=== PATIENT | female | born 1980 | race Caucasian/White ===

== ENCOUNTER 2023-03-01 09:02 | Outpatient (CLI) | payer OTHER, SELFPAY ==
--- NOTE | 2023-03-01 09:15 | CRLHL7_ITS ---
For Patients: As a result of the Century Cures Act, medical imaging exams and procedure reports are released immediately into your electronic medical record. You may view this report before your referring provider. If you have questions, please contact your health care provider. BILATERAL SCREENING MAMMOGRAM WITH COMPUTER-AIDED DETECTION TECHNIQUE: CC and MLO views were obtained. These mammographic images have been obtained using full-field digital technique. These mammographic images were interpreted with the benefit of computer-aided detection. COMPARISON FILM: 02/23/22, 11/18/20. FINDINGS: The breasts are heterogeneously dense, which may obscure small masses. IMPRESSION: There is no radiographic evidence for malignancy. ASSESSMENT: BI-RADS Category 1: Negative RECOMMENDATION: Routine screening mammogram in 1 year. A lay language report of this examination will be provided to the patient. SCOTT ARMENTA M.D. Diagnostic Radiologist [email or web address] Transcribed: 03/01/2023, 5:[address]/Dictated by: Scott Armenta MD @ 03/01/2023 11:03:00 AM (Electronically Signed)
== END 2023-03-01 09:03 | disposition home or self-care (01) ==
PROVIDERS: Visit Provider Obstetrics & Gynecology
DX: Z12.31 Encounter for screening mammogram for malignant neoplasm of breast (principal); R92.2 Inconclusive mammogram
CPT/HCPCS: 77067

== ENCOUNTER 2023-07-18 08:15 | Outpatient (CLI) | payer OTHER, SELFPAY | END 2023-07-18 08:16 | disposition home or self-care (01) | LOC: NFLDREF 07-20 11:42 | PROVIDERS: PCP Family Medicine; Referring Provider Family Medicine; Visit Provider Family Medicine | DX: Z00.00 Encounter for general adult medical examination without abnormal findings (principal); G43.909 Migraine, unspecified, not intractable, without status migrainosus; K59.00 Constipation, unspecified; N39.3 Stress incontinence (female) (male); R53.83 Other fatigue; Z13.6 Encounter for screening for cardiovascular disorders | CPT/HCPCS: 80053; 80061; 82306; 82784; 84443; 86364 ==

== ENCOUNTER 2023-07-26 08:49 | Outpatient (CLI) | payer OTHER, SELFPAY ==
--- NOTE | 2023-07-26 09:57 | W.ANESCHARGE ---
Anesthesia Charges Start Date/Time Anesthesia Start Date: 07/26/23 Anesthesia Start Time: 09:30 Stop Date/Time Anesthesia Stop Date: 07/26/23 Anesthesia Stop Time: 09:53
== END 2023-07-26 08:50 | disposition home or self-care (01) ==
LOC: OP CLINIC 08:50
PROVIDERS: PCP Family Medicine; Visit Provider Internal Medicine
DX: K62.5 Hemorrhage of anus and rectum (principal)
CPT/HCPCS: 00811; 45380; 88305; J2704

== ENCOUNTER 2023-09-06 08:54 | Outpatient (CLI) | payer OTHER, SELFPAY | END 2023-09-06 08:55 | disposition home or self-care (01) | LOC: NFLDREF 09-07 15:20 | PROVIDERS: PCP Family Medicine; Visit Provider Family Medicine | DX: Z00.00 Encounter for general adult medical examination without abnormal findings (principal); R00.2 Palpitations; N39.3 Stress incontinence (female) (male); E55.9 Vitamin D deficiency, unspecified; Z13.6 Encounter for screening for cardiovascular disorders | CPT/HCPCS: 80053; 80061; 82306; 83880; 84443; 87086 ==

== ENCOUNTER 2023-10-06 09:08 | Outpatient (CLI) | payer OTHER, SELFPAY | END 2023-10-06 09:09 | disposition home or self-care (01) | LOC: FRMREF 09:14 | PROVIDERS: PCP Family Medicine; Visit Provider Family Medicine | DX: Z00.00 Encounter for general adult medical examination without abnormal findings (principal); J45.909 Unspecified asthma, uncomplicated | CPT/HCPCS: 86769 ==

== ENCOUNTER 2024-04-25 14:20 | Outpatient (CLI) | payer OTHER, SELFPAY ==
--- OUTSIDE RECORDS SUMMARY | 2024-04-25 14:33 | XMS_ITS | Clinical Summary ---
Author Organization [facility] Address [place], [place] [address] Care Team Providers Care Hog Sticker Name Role Phone Indu Cárdenas MD Primary Care Prov ider Allergies No known active allergies Medications Medication Sig Dispensed Refills Start Date End Date Status cetirizine (ZYRTEC) 10 mg tablet Take 1 tablet by mouth once daily. 0 07/12/2018 Active metoprolol tartrate (LOPRESSOR) 25 mg tabletIndications:Pal pitation Take 1 tablet by mouth 2 times daily if needed (heart palpitations). 60 tablet 11 10/20/2018 Active Active Problems Problem Noted Date Diagnosed Date Urinary urgency 06/27/2017 Social History Tobacco Use Types Packs/Day Years Used Date Smoking Tobacco: Never Smokeless Tobacco: Never Tobacco Cessation:Counseling Given: Yes Alcohol Use Standard Drinks/Week Comments Yes 0 (1 standard drink = 0.6 oz pur e alcohol) 1-2 per week Sex and Gender Information Value Date Recorded Sex Assigned at Not on file Gender Identity Not on file Sexual Orientation Not on file Obstetrics History Last Filed Vital Signs Vital Sign Reading Time Taken Comments Blood Pressure 122/88 11/17/2018 11:02 AM EARLY CHILDHOOD EDUCATION SPECIALIST Pulse 67 11/17/2018 11:02 AM EARLY CHILDHOOD EDUCATION SPECIALIST Temperature - - Respiratory Rate 16 11/17/2018 11:02 AM EARLY CHILDHOOD EDUCATION SPECIALIST Oxygen Saturation 98% 07/12/2018 4:07 PM CDT Inhaled Oxygen Concentration - - Weight 62.1 kg (137 lb) 11/17/2018 11:02 AM EARLY CHILDHOOD EDUCATION SPECIALIST Height 167.7 cm (5' 6.02) 07/12/2018 4:07 PM CD T Body Mass Index 22.1 07/12/2018 4:07 PM CDT Plan of Treatment Health Maintenance Due Date Last Done Comments Tdap 1991 Depression screening for age 12+ 1992 HIV for age 15-65 1995 Hepatitis C screening for age 18-79 1998 Tetanus booster 2000 BMI (ht and wt on same day) for age 18+ 07/12/2019 07/12/2018 COVID-19 vaccine series (2022-24 season) 2023 Pap test for age 21-65 09/15/2023 0, 09/15/2020, 06/13/2019, Additional history exists Influenza for age 9-49 07/29/2024 Pneumococcal series for age 6-64 Aged Out No longer eligible based on patient's age to complete this topic Procedures Procedure Name Priority Date/Time Associated Diagnosis Comments MOTORBOAT MECHANIC INBOARD THIN PREP PAP SCREEN IMAGED Routine 09/15/2020 10:00 AM CDT from Last 3 Months or Most Recently Relevant to Health Maintenance Results * MOTORBOAT MECHANIC INBOARD THIN PREP PAP SCREEN IMAGED (09/15/2020 10:00 AM CDT) Case Report Gynecologic Cytology Report ? Case: [id number] ? Authorizing Provider: ??Indu Cárdenas ?Collected: ? 09/15/2020 1000 ? MD Keri ? Ordering Location: ? [facility] ?Received: ?09/17/2020 0939 ? First Screen: ?Ivan Harris ? Specimen: ?MOTORBOAT MECHANIC INBOARD ThinPrep Vial Screening, Cervical/Vaginal ? 09/22/2020 9:54 AM [facility] INTERPRETATION/ RESULT NEGATIVE FOR INTRAEPITHELIAL LESION OR MALIGNANCY (NIL) (none) 09/22/2020 9:54 AM [facility] IMEN ADEQUACY Satisfactory for evaluation Endocervical component present 09/22/2020 9:54 AM [facility] HPV REQUEST HPV and PAP 09/22/2020 9:54 AM [facility] Last Pap Date 06/13/2019 09/22/2020 9:54 AM [facility] Last Pap Result NIL 0 9:54 AM [facility] Comment:-HPV Menstrual Status 09/22/2020 9:54 AM [facility] Comment:IUD Additional Information 09/22/2020 9:54 AM [facility] Comment: Interpreted at [facility], Central Laboratory - [address], [place] [address] Automated Review Successful 09/22/2020 9:54 AM [facility] Comment:Specimen processed s uccessfully by automated velvet steamer device, ThinPrep Imaging System, [employer] ANCILLARY TESTING MOTORBOAT MECHANIC INBOARD HPV Ordered, Please see separate report 09/22/2020 9:54 AM [facility] Note The pap test is a screening technique, not a diagnostic procedure. It is used primarily to screen for squamous cancers and precursor lesions. Published studies have shown that it is subject to both false negative and false positive results. The pap test should not be used as the sole means to diagnose or exclude pre-malignant and malignant lesions. 09/22/2020 9:54 AM CDT [facility] Other (Cervical/Vagina l) 09/15/2020 10:00 AM CDT 09/17/2020 9:39 AM CDT Indu Cárdenas MD PATHOLOGY/ [facility]TOLOGY [facility] [address] [place] [address], [place] from Last 3 Months or Most Recently Relevant to Health Maintenance Care Teams Hog Sticker Relationship Specialty Start Date End Date Indu Cárdenas MD [address] [place] [address] PCP - General Obstetrics and Gynecology 07/12/18
== END 2024-04-25 14:21 | disposition home or self-care (01) ==
LOC: NFLDREF 14:31
PROVIDERS: PCP Family Medicine; Visit Provider Registered Nurse
DX: Z79.899 Other long term (current) drug therapy (principal)
CPT/HCPCS: 80076

== ENCOUNTER 2024-05-10 07:17 | Outpatient (CLI) | payer OTHER, SELFPAY ==
--- OUTSIDE RECORDS SUMMARY | 2024-05-10 07:21 | XMS_ITS | Clinical Summary ---
Author Organization [facility] Address [place], [place] [address] Care Team Providers Care Skeins Yarn Examiner Name Role Phone Indu Cárdenas MD Primary [...] Comments Blood Pressure 122/88 11/17/2018 11:02 AM BANKRUPTCY PROCESSOR Pulse 67 11/17/2018 11:02 AM BANKRUPTCY PROCESSOR Temperature - - Respiratory Rate 16 11/17/2018 11:02 AM BANKRUPTCY PROCESSOR Oxygen Saturation 98% 07/12/2018 4:07 PM CDT Inhaled Oxygen Concentration - - Weight 62.1 kg (137 lb) 11/17/2018 11:02 AM BANKRUPTCY PROCESSOR Height 167.7 cm (5' 6.02) 07/12/2018 4:07 [...] Procedure Name Priority Date/Time Associated Diagnosis Comments TOOTH CUTTER CLUTCH THIN PREP PAP SCREEN IMAGED Routine 09/15/2020 10:00 AM CDT from Last 3 Months or Most Recently Relevant to Health Maintenance Results * TOOTH CUTTER CLUTCH THIN PREP PAP SCREEN IMAGED (09/15/2020 10:00 AM CDT) Case Report Gynecologic Cytology Report ? Case: [id number] ? Authorizing Provider: ??Indu Cárdenas ?Collected: ? 09/15/2020 1000 ? MD Keri ? Ordering Location: ? [facility] ?Received: ?09/17/2020 0939 ? First Screen: ?Ivan Harris ? Specimen: ?TOOTH CUTTER CLUTCH ThinPrep Vial Screening, Cervical/Vaginal ? 09/22/2020 9:[address] [facility] INTERPRETATION/ RESULT NEGATIVE FOR INTRAEPITHELIAL LESION OR MALIGNANCY (NIL) (none) 09/22/2020 9:54 AM [facility] IMEN ADEQUACY Satisfactory for evaluation Endocervical component present 09/22/2020 9:[address] [facility] HPV REQUEST HPV and PAP 09/22/2020 9:54 AM [facility] Last Pap Date 06/13/2019 09/22/2020 9:54 AM [facility] Last Pap Result NIL 0 9:54 AM [facility] Comment:-HPV Menstrual Status 09/22/2020 9:54 AM [facility] Comment:IUD Additional Information 09/22/2020 9:54 AM [facility] Comment: Interpreted at [facility], Central Laboratory - [address], [place] [address] Automated Review Successful 09/22/2020 9:54 AM [facility] Comment:Specimen processed s uccessfully by automated relationship consultant device, ThinPrep Imaging System, [employer] ANCILLARY TESTING TOOTH CUTTER CLUTCH HPV Ordered, Please see separate report 09/22/2020 9:54 AM [facility] Note The pap test is [...] and malignant lesions. 09/22/2020 9:54 AM CDT [facility] Other (Cervical/Vagina l) 09/15/2020 10:00 AM CDT 09/17/2020 9:39 AM CDT Indu Cárdenas MD PATHOLOGY/ CYTOLOGY [facility] [address] [place] [address], [place] from Last 3 Months or Most Recently Relevant to Health Maintenance Care Teams Skeins Yarn Examiner Relationship Specialty Start Date End Date Indu Cárdenas MD [address] [place] [address] PCP - General Obstetrics and Gynecology 07/12/18
--- NOTE | 2024-05-10 08:21 | W.ANESCHARGE ---
Anesthesia Charges Start Date/Time Anesthesia Start Date: 05/10/24 Anesthesia Start Time: 08:00 Stop Date/Time Anesthesia Stop Date: 05/10/24 Anesthesia Stop Time: 08:18
--- NOTE | 2024-05-10 09:49 | W.ANESCHARGE ---
Anesthesia Charges Start Date/Time Anesthesia Start Date: 05/10/24 Anesthesia Start Time: 08:00 Stop Date/Time Anesthesia Stop Date: 05/10/24 Anesthesia Stop Time: 08:18
== END 2024-05-10 07:18 | disposition home or self-care (01) ==
LOC: OP CLINIC 07:19
PROVIDERS: PCP Family Medicine; Visit Provider Surgery
DX: R13.10 Dysphagia, unspecified (principal)
CPT/HCPCS: 00731; 43239; 88305; J2704

== ENCOUNTER 2024-07-11 08:57 | Outpatient (CLI) | payer OTHER, SELFPAY ==
--- OUTSIDE RECORDS SUMMARY | 2024-07-11 09:00 | XMS_ITS | Clinical Summary ---
Author Organization [facility] Address [place], [place] [address] Care Team Providers Care Delivery Agent Name Role Phone Indu Cárdenas MD Primary [...] Noted Date Diagnosed Date Urinary urgency 06/27/2017 Encounters Date Type Department Care Team Description 06/21/2024 9:00 AM CDT Office Visit [facility] [address] [place] [address] Marino Encarnacion MD CV General Cardiology New 05/14/2024 Orders Only [facility] [address] [place] [address] Cassi Velarde 1 scan: (1-Ord) MARIETTAO FINAL REPORT 05/10/2024 Lab Requisition [facility] [phone] Vladimir Tran MD from Last 3 Months Social History Tobacco Use Types Packs/Day Years Used Date Smoking Tobacco: Never Smokeless Tobacco: Never Tobacco Cessation:Counseling Given: Yes Alcohol Use Standard Drinks/Week Comments Yes 0 (1 standard drink = 0.6 oz pur e alcohol) 1-2 per week Social Connections Answer Date Recorded Frequency of Communication with Friends and Fami ly Not on file 06/21/2024 Sex and Gender Information Value Date Recorded Sex Assigned at Not on file Gender Identity Not on file Sexual Orientation Not on file Obstetrics History Last Filed Vital Signs Vital Sign Reading Time Taken Comments Blood Pressure 122/88 11/17/2018 11:02 AM RESEARCH CLERK Pulse 67 11/17/2018 11:02 AM RESEARCH CLERK Temperature - - Respiratory Rate 16 11/17/2018 11:02 AM RESEARCH CLERK Oxygen Saturation 98% 07/12/2018 4:07 PM CDT Inhaled Oxygen Concentration - - Weight 62.1 kg (137 lb) 11/17/2018 11:02 AM RESEARCH CLERK Height 167.7 cm (5' 6.02) 07/12/2018 4:07 [...] age 18+ 07/12/2019 07/12/2018 COVID-19 vaccine series (3 - 2022-24 season) 2023 10/19/2021, 03/05/2021 Pap test for age 21-65 09/15/2023 , 09/15/2020, 06/13/2019, Additional history exists Influenza for age 9-49 07/29/2024 Pneumococcal series for age 6-64 Aged Out No longer eligible based on patient's age to complete this topic Procedures Procedure Name Priority Date/Time Associated Diagnosis Comments EXTENDED HOLTER Routine 05/14/2024 Tachycardia LAB TRACKING EVENT Routine 05/10/2024 8: 08 AM CDT PATH TISSUE EXAM Routine 05/10/2024 7:03 AM CDT WELDING PANTOGRAPH MACHINE OPERATOR THIN PREP PAP SCREEN IMAGED Routine 09/15/2020 10:00 AM CDT from Last 3 Months or Most Recently Relevant to Health Maintenance Results * EXTENDED HOLTER (05/14/2024) Scott Zavala MD CARDIAC SERVICES ORD * LAB TRACKING EVENT (05/10/2024 8:08 AM CDT) Other (Other) Client Collect / Unknown 05/10/2024 8:08 AM CDT 05/10/2024 10:10 PM CDT Vladimir Tran MD LAB BILL ONLY [facility]-CENTRAL LABORATORY [address] [place] [address], * PATH TISSUE EXAM (05/10/2024 7:03 AM CDT) Case Report Pathology Report ?Case: [id number] ? Authorizing Provider: ??Vladimir Tran MD ?Collected: ? 05/10/2024 0703 ? Ordering Location: ? [facility] ?Received: ?05/11/2024 1140 ? Pathologist: ? Ankush Batres ? IV, MD ? Specimens: ?? A) - Duodenum Biopsy ? B) - Stomach Biopsy ? C) - Distal Esophagus Biopsy ? D) - Mid Esophagus Biopsy ? 05/14/2024 12:15 PM CDT [facility]-C ENTRAL LABORATORY Final Diagnosis A) DUODENUM, BIOPSY: 1. Normal duodenal mucosa 2. Negative for celiac disease and other enteropathy B) STOMACH, BIOPSY: 1. Normal gastric antral and body mucosae 2. Negative for Helicobacter C) ESOPHAGUS, DISTAL, BIOPSY: 1. Eosinophilic esophagitis (peak count of 25 eosinophils/HPF) 2. Negative for columnar mucosa D) ESOPHAGUS, MID, BIOPSY: 1. Normal esophageal squamous mucosa 2. See part C 05/14/2024 12:15 PM CDT [facility] ENTRAL LABORATORY Comment C) The histologic features are typical of eosinophilic esophagitis. Some patients respond to a trial of high dose proton pump inhibitor (PPI) therapy or dietary modifications, which may be useful in this patient's management. Peak eosinophil counts per high power field: 05/14/2024: 25 (current biopsy, no treatment, index biopsy) 05/14/2024 12:15 PM CDT [email or web address] LAB[facility]AT[facility] Clinical Information Ms. Elmore is a 43 y.o. who presents with dysphagia. EGD findings include: -Normal exam 05/14/2024 12:15 PM CDT [facility] [email or web address] [facility]-C ENTRAL LABORATORY Gross Description A) Received in formalin are 4 warren mucosal fragments ranging from 3 mm to 11 mm in greatest dimension, which are entirely submitted in one cassette. It is labeled with the patient's name and designated duodenum biopsies. B) Received in formalin are 6 warren mucosal fragments ranging from 2 mm to 8 mm in greatest dimension, which are entirely submitted in one cassette. It is labeled with the patient's name and designated random stomach. C) Received in formalin are 4 warren mucosal fragments averaging 4 mm in greatest dimension, which are entirely submitted in one cassette. It is labeled with the patient's name and designated distal esophagus. D) Received in formalin are 5 warren mucosal fragments ranging from 2 mm to 7 mm in greatest dimension, which are entirely submitted in one cassette. It is labeled with the patient's name and designated mid esophagus. Haley Clementine Peter 05/11/2024 2:41 PM 05/14/2024 12:15 PM CDT [facility] [email or web address] [facility] Microscopic Description The final diagnosis is based on microscopic examination of appropriate sections of all specimens. C) The histologic findings include: ? Peak eosinophil count: See final diagnosis ? Intercellular edema: ? Mild ? Eosinophil microabscess: ? Absent ? Eosinophil surface layering: Present ? Extracellular granules: ?Present 05/14/2024 12:15 PM CDT [facility] [email or web address] LABORATORY-C ENTRSC LABORATORY Additional Information Interpreted at [facility], Central Laboratory - [address] [facility] [address], [place] [address] 05/14/2024 12:15 PM CDT [facility] [email or web address] [facility] Other (Duodenum Biopsy) 05/10/2024 7:03 AM CDT 05/11/2024 11:40 AM CDT Specimen (specimen) (Stomach Biopsy) 05/10/2024 7:03 AM CDT 05/11/2024 11:40 AM CDT Specimen (specimen) (Distal Esophagus Biopsy) 05/10/2024 7:03 AM CDT 05/11/2024 11:40 AM CDT Specimen (specimen) (Mid Esophagus Biopsy) 05/10/2024 7:03 AM CDT 05/11/2024 11:40 AM CDT Vladimir Tran MD PATHOLOGY/CYTOLOGY [facility]-CENTRAL LABORATORY [address] [place] [address], * WELDING PANTOGRAPH MACHINE OPERATOR THIN PREP PAP SCREEN IMAGED (09/15/2020 10:00 AM CDT) Case Report Gynecologic Cytology Report ? Case: [id number] ? Authorizing Provider: ??Indu Cárdenas ?Collected: ? 09/15/2020 1000 ? MD Keri ? Ordering Location: ? [facility] ?Received: ?09/17/202039 ? First Screen: ?Ivan Harris ? Specimen: ?WELDING PANTOGRAPH MACHINE OPERATOR ThinPrep Vial Screening, Cervical/Vaginal ? 09/22/2020 9:54 AM CDT [facility] INTERPRETATION/ RESULT NEGATIVE FOR INTRAEPITHELIAL LESION OR MALIGNANCY (NIL) (none) 09/22/2020 9:54 AM T [facility] IMEN ADEQUACY Satisfactory for evaluation Endocervical component present 09/22/2020 9:54 AM CDT [facility] HPV REQUEST HPV and PAP 09/22/2020 9:54 AM [facility] Last Pap Date 06/13/2019 09/22/2020 9:54 AM T [facility] ENTRAL LABORATORY Last Pap Result NIL 0 9:54 AM [facility] Comment:-HPV Menstrual Status 09/22/2020 9:54 AM T [facility] Comment:IUD Additional Information 09/22/2020 9:54 AM T [facility] Comment: Interpreted at [facility], Central Laboratory - [address], [place] [address] Automated Review Successful 09/22/2020 9:54 AM [facility] Comment:Specimen processed s uccessfully by automated retail director device, ThinPrep Imaging System, [employer] ANCILLARY TESTING WELDING PANTOGRAPH MACHINE OPERATOR HPV Ordered, Please see separate report 09/22/2020 9:54 AM [facility] Note The pap test is [...] pre-malignant and malignant lesions. 09/22/2020 9:54 AM [facility] Other (Cervical/Vagina l) 09/15/2020 10:00 AM CDT 09/17/2020 9:39 AM CDT Indu Cárdenas MD PATHOLOGY/ CYTOLOGY [facility]-CENTRAL LABORATORY [address] [place] [address], from Last 3 Months or Most Recently Relevant to Health Maintenance Care Teams Delivery Agent Relationship Specialty Start Date End Date Indu Cárdenas MD [address] [place] [address] PCP - General Obstetrics and Gynecology 07/12/18
--- NOTE | 2024-07-11 09:15 | CRLHL7_ITS ---
For Patients: As a result of the Century Cures Act, medical imaging exams and procedure reports are released immediately into your electronic medical record. You may view this report before your referring provider. If you have questions, please contact your health care provider. BILATERAL SCREENING MAMMOGRAM WITH COMPUTER-AIDED DETECTION AND TOMOSYNTHESIS TECHNIQUE: CC and MLO views were obtained. These mammographic images have been obtained using full-field digital technique. These mammographic images were interpreted with the benefit of computer-aided detection. Breast Tomosynthesis was used in this interpretation. COMPARISON FILM: 03/01/23, 03/02/22, 02/03/22 FINDINGS: The breasts are heterogeneously dense, which may obscure small masses IMPRESSION: There is no radiographic evidence for malignancy. ASSESSMENT: BI-RADS Category 1: Negative RECOMMENDATION: Routine screening mammogram in 1 year. A lay language report of this examination will be provided to the patient. Scott Navarro M.D. Diagnostic Radiologist [email or web address] Transcribed: 6:06 p.jackson colin/Dictated by: Scott Navarro MD @ 07/12/2024 10:18:00 AM (Electronically Signed)
== END 2024-07-11 08:58 | disposition home or self-care (01) ==
LOC: MAMMO 08:58
PROVIDERS: Visit Provider Obstetrics & Gynecology
DX: Z12.31 Encounter for screening mammogram for malignant neoplasm of breast (principal); R92.2 Inconclusive mammogram
CPT/HCPCS: 77063; 77067

== ENCOUNTER 2025-07-23 12:51 | Outpatient (CLI) | payer OTHER, SELFPAY ==
--- NOTE | 2025-07-23 13:00 | CRLHL7_ITS ---
For Patients: As a result of the Century Cures Act, medical imaging exams and procedure reports are released immediately into your electronic medical record. You may view this report before your referring provider. If you have questions, please contact your health care provider. INDICATION: BILATERAL SCREENING MAMMOGRAM, ASYMPTOMATIC 44 Y/O FEMALE COMPARISON: 07/11/2024, 03/01/2023, 03/02/2022 TECHNIQUE: Digital mammogram in CC and MLO projections including computer-aided detection (CAD) and tomosynthesis. BREAST COMPOSITION: The breasts are heterogeneously dense, which may obscure small masses. FINDINGS: No suspicious findings. ASSESSMENT: BI-RADS 1 Negative RECOMMENDATION: Annual screening mammogram. A lay language report of this examination will be provided to the patient. Dictated by: Scott Navarro MD @ 07/24/2025 10:09:11 (Electronically Signed)
== END 2025-07-23 12:52 | disposition home or self-care (01) ==
LOC: MAMMO 12:53
PROVIDERS: Visit Provider Registered Nurse
DX: Z12.31 Encounter for screening mammogram for malignant neoplasm of breast (principal); R92.333 Mammographic heterogeneous density, bilateral breasts
CPT/HCPCS: 77063; 77067

== ENCOUNTER 2025-11-19 09:14 | Outpatient (CLI) | payer OTHER, SELFPAY ==
[2025-11-22 01:13] LABS: HPV Source Cervical
[2025-11-26 08:17] LABS: Pap Test Digital Imaging Done
== END 2025-11-19 09:15 | disposition home or self-care (01) ==
PROVIDERS: Visit Provider Obstetrics & Gynecology
DX: R74.01 Elevation of levels of liver transaminase levels (principal); R63.5 Abnormal weight gain; Z68.24 Body mass index [BMI] 24.0-24.9, adult
CPT/HCPCS: 84443; 84450; 84460; 87624; 87625; 88141; 88142; 88175